=== PATIENT | female | born 1985 | race Caucasian/White ===

== ENCOUNTER 2016-10-30 03:01 | Emergency (ER) | payer SELFPAY ==
[~2016-10-30] VITALS: Ht 165.1 cm; Wt 62.4 kg
[~2016-10-30 03:01] MED LIST: CIPR500T87 PO; OXYC-302 PO
[2016-10-30] MEDS ORDERED: ONDANSETRON ODT 4 MG ONE (03:50)
[2016-10-30] MEDS ORDERED: KETOROLAC 30 MG/1 ML ONE (03:50)
[2016-10-30] MEDS ORDERED: DIPHENHYDRAMINE 25 MG CAPSULE ONE (03:50)
[2016-10-30] MEDS ORDERED: DIPHENHYDRAMINE 25 MG CAPSULE PO ONE (04:00)
[2016-10-30] MEDS ORDERED: ONDANSETRON ODT 4 MG PO ONE (04:00)
[2016-10-30] MEDS ORDERED: KETOROLAC 30 MG/1 ML IM ONE (04:00)
[2016-10-30 04:41] VITALS: BP 126/72
== END 2016-10-30 04:44 | disposition home or self-care (01) ==
LOC: ED 04:38
DX: G44.219 Episodic tension-type headache, not intractable (principal)
CPT/HCPCS: 96372; 99283; J1885; Q0162; Q0163

== ENCOUNTER 2017-09-20 18:28 | Emergency (ER) | payer MEDICAID ==
[~2017-09-20] VITALS: Ht 167.6 cm; Wt 70.0 kg
[2017-09-20] MEDS ORDERED: SODIUM CHLORIDE FLUSH 10ML SYR IVF ONE (18:30)
[2017-09-20 18:48] LABS: BASOPHILS # (AUTO) 0.04 x10^3/uL (0-0.1); BASOPHILS % (AUTO) 1 % (0-1); EOSINOPHILS # (AUTO) 0.14 x10^3/uL (0-0.4); EOSINOPHILS % (AUTO) 2 % (1-7); LYMPHOCYTES % (AUTO) 46 % (22-44); MD NO; MEAN CORPUSCULAR HEMOGLOBIN 28.5 pg (27.0-34.8); MEAN CORPUSCULAR HGB CONC 33.8 g/dL (32.4-35.8); MEAN CORPUSCULAR VOLUME 84.5 fL (80-100); MEAN PLATELET VOLUME 7.5 fL (7.4-10.4); MONOCYTES # (AUTO) 0.29 x10^3/uL (0.2-0.8); MONOCYTES % (AUTO) 5 % (2-9); NEUTROPHILS # (AUTO) 2.65 x10^3/uL (1.8-6.8); NEUTROPHILS % (AUTO) 46 % (42-75); PLATELET COUNT 342 x10^3/uL (130-400); RED BLOOD COUNT 4.87 x10^6/uL (3.82-5.3); RED CELL DISTRIBUTION WIDTH 15.3 % (9.6-15.2)
[2017-09-20] MEDS ORDERED: NALOXONE 0.4 MG/ML, 1ML ONE (18:49)
[2017-09-20 19:00] LABS: ALBUMIN 3.6 g/dL (3.4-5.0); ANION GAP 9 mmol/L (5-15); CALCIUM 8.6 mg/dL (8.5-10.1); CHLORIDE 109 mmol/L (98-107)
[2017-09-20] MEDS ORDERED: PROMETHAZINE 25 MG/ML, 1ML IM ONE (19:00)
[2017-09-20] MEDS ORDERED: PLEASE ENTER HEIGHT AND WEIGHT MC SCH (19:00)
[2017-09-20] MEDS ORDERED: FAMOTIDINE 20 MG/2 ML IVP ONE (19:00)
[2017-09-20] MEDS ORDERED: ICN NALOXONE 0.02 MG/ML IV IVPush ONE (19:00)
[2017-09-20] MEDS ORDERED: NALOXONE 0.4 MG/ML, 1ML IVPush ONE (19:00)
[2017-09-20 19:06] LABS: ALANINE AMINOTRANSFERASE 49 U/L (12-78); ALKALINE PHOSPHATASE 98 U/L (45-117); BILIRUBIN,TOTAL 0.7 mg/dL (0.2-1.0); CREATININE 0.92 mg/dL (0.55-1.02); TOTAL PROTEIN 7.4 g/dL (6.4-8.2)
[2017-09-20] MEDS ORDERED: FAMOTIDINE 20 MG/2 ML ONE (19:27)
[2017-09-20 19:37] LABS: CULTURE INDICATED? YES; MICROSCOPIC INDICATED
[2017-09-20 20:31] LABS: AMPHETAMINE SCREEN, URINE Positive (Negative); BARBITURATE SCREEN, URINE Negative (Negative); BENZODIAZEPINE SCREEN, URINE Negative (Negative); CANNABINOID SCREEN, URINE Negative (Negative); COCAINE SCREEN, URINE Negative (Negative); METHADONE SCREEN, URINE Negative (Negative); OPIATE SCREEN, URINE Negative (Negative)
[2017-09-20 20:56] VITALS: BP 92/55
== END 2017-09-20 21:03 | disposition home or self-care (01) ==
LOC: ED 20:50
DX: K29.00 Acute gastritis without bleeding (principal); K29.20 Alcoholic gastritis without bleeding; F10.10 Alcohol abuse, uncomplicated; F15.10 Other stimulant abuse, uncomplicated; F17.200 Nicotine dependence, unspecified, uncomplicated; Z90.49 Acquired absence of other specified parts of digestive tract; Z91.14 Patient's other noncompliance with medication regimen; Z60.9 Problem related to social environment, unspecified; Z72.89 Other problems related to lifestyle; Z88.0 Allergy status to penicillin
CPT/HCPCS: 36415; 71045; 80053; 80307; 81001; 83690; 84703; 85025; 87086; 93005; 96374; 96375; 99285; J2310; S0028

== ENCOUNTER 2018-08-28 16:19 | Emergency (ER) | payer MEDICAID ==
[~2018-08-28] VITALS: Ht 165.1 cm; Wt 86.0 kg
[2018-08-28 16:30] VITALS: BP 119/75
== END 2018-08-28 17:28 | disposition home or self-care (01) ==
LOC: ED 17:08
DX: J20.8 Acute bronchitis due to other specified organisms (principal); B97.89 Other viral agents as the cause of diseases classified elsewhere; F17.210 Nicotine dependence, cigarettes, uncomplicated
CPT/HCPCS: 71046; 99283; 99406

== ENCOUNTER 2018-09-05 10:21 | Emergency (ER) | payer MEDICAID ==
[~2018-09-05] VITALS: Ht 165.1 cm; Wt 80.0 kg
[2018-09-05 10:24] VITALS: BP 127/81
[2018-09-05] MEDS ORDERED: IBUPROFEN 200 MG TABLET ONE (10:46)
--- NOTE | 2018-09-05 10:52 | NUR ---
PT MEDICATED ORDERED FOR 10 PAIN.
[2018-09-05] MEDS ORDERED: IBUPROFEN 600 MG TABLET PO ONE (11:00)
== END 2018-09-05 12:21 | disposition home or self-care (01) ==
LOC: ED 11:27
DX: G89.11 Acute pain due to trauma (principal); M25.561 Pain in right knee; W01.0XXA Fall on same level from slipping, tripping and stumbling without subsequent striking against object, initial encounter; Y93.39 Activity, other involving climbing, rappelling and jumping off; Y92.89 Other specified places as the place of occurrence of the external cause; Y99.8 Other external cause status
CPT/HCPCS: 29505; 99283